=== PATIENT | male | born 1935 | race Caucasian/White ===

== ENCOUNTER → 2016-11-18 | Outpatient (CLI) | payer MEDICARE, BC ==
[~2016-11-18] MED LIST: ACETAMINOPHEN325 MG PO; CELEBREX200 MG PO; ELIQUIS5 MG PO; FERROUS SULFAT325 M1 PO; FINASTERIDE5 MG PO; FLOMAX0.4 MG PO; HYDROCODON-ACE1 EAC4 PO; KLOR-CON M1010 MEQ PO; LEXAPRO10 MG PO; MIRALAX17 GM PO; PANTOPRAZOLE SO40 MG PO; PLAVIX75 MG PO; PRINIVIL10 MG PO; TEGRETOL200 MG PO; TUMS500 MG PO; XANAX0.5 MG PO
== END | disposition short-term general hospital (02) ==
LOC: CLCARD 09:59
DX: I10 Essential (primary) hypertension (principal); E78.5 Hyperlipidemia, unspecified

== ENCOUNTER → 2016-12-27 | Outpatient (CLI) | payer MEDICARE, BC | END | disposition short-term general hospital (02) | LOC: CLUROL 07:37 | DX: R97.20 Elevated prostate specific antigen [PSA] (principal) ==

== ENCOUNTER 2017-01-14 22:06 | Emergency (ER) | payer MEDICARE, BC ==
[~2017-01-14 22:06] MED LIST changes: -ACETAMINOPHEN325 MG PO; -ELIQUIS5 MG PO; -HYDROCODON-ACE1 EAC4 PO; -MIRALAX17 GM PO; -PRINIVIL10 MG PO; -TUMS500 MG PO
[2017-01-15] MEDS ORDERED: ACETAMINOPHEN325 MG PO (01:59)
[2017-01-15] MEDS ORDERED: XANAX0.5 MG PO (02:00)
[2017-01-15] MEDS ORDERED: PRINIVIL10 MG PO (02:00)
[2017-01-15] MEDS ORDERED: ELIQUIS5 MG PO (02:00)
[2017-01-15] MEDS ORDERED: HYDROCODON-ACE1 EAC4 PO (02:01)
[2017-01-15] MEDS ORDERED: TUMS500 MG PO (02:02)
[2017-01-15] MEDS ORDERED: MIRALAX17 GM PO (02:02)
== END 2017-01-14 22:55 | disposition short-term general hospital (02) ==
LOC: ER 22:06
DX: I21.3 ST elevation (STEMI) myocardial infarction of unspecified site (principal); I95.9 Hypotension, unspecified; I10 Essential (primary) hypertension; E78.5 Hyperlipidemia, unspecified; F32.9 Major depressive disorder, single episode, unspecified; K21.9 Gastro-esophageal reflux disease without esophagitis; N40.0 Benign prostatic hyperplasia without lower urinary tract symptoms; Z86.73 Personal history of transient ischemic attack (TIA), and cerebral infarction without residual deficits; Z79.01 Long term (current) use of anticoagulants; Z79.899 Other long term (current) drug therapy; Z87.891 Personal history of nicotine dependence; Z90.49 Acquired absence of other specified parts of digestive tract; Z98.890 Other specified postprocedural states; Z90.89 Acquired absence of other organs
CPT/HCPCS: A9270; J1644

== ENCOUNTER → 2017-02-17 | Outpatient (CLI) | payer MEDICARE, BC ==
[~2017-02-17] MED LIST changes: +ACETAMINOPHEN325 MG PO; +ELIQUIS5 MG PO; +HYDROCODON-ACE1 EAC4 PO; +MIRALAX17 GM PO; +PRINIVIL10 MG PO; +TUMS500 MG PO
== END | disposition short-term general hospital (02) ==
LOC: CLCARD 09:53
DX: I25.10 Atherosclerotic heart disease of native coronary artery without angina pectoris (principal); Q21.1 Atrial septal defect; I25.2 Old myocardial infarction; I25.3 Aneurysm of heart; E78.5 Hyperlipidemia, unspecified; I10 Essential (primary) hypertension; Z95.5 Presence of coronary angioplasty implant and graft; Z86.73 Personal history of transient ischemic attack (TIA), and cerebral infarction without residual deficits